=== PATIENT | male | born 1985 | race Caucasian/White ===

== ENCOUNTER 2024-07-24 02:28 | Emergency (ER) | payer SELFPAY ==
[2024-07-24 02:39] VITALS: BP 185/116
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
[2024-07-24] MEDS: ADACEL 0.5 ML IM (03:15)
[2024-07-24] MEDS: PERCOCET 5/325 2 TABLET PO (04:21)
== END 2024-07-24 04:51 | disposition home or self-care (01) ==
LOC: EMR 02:28
PROVIDERS: EMERGENCY PHYSICIAN Student in an Organized Health Care Education/Training Program
DX: T23.242A Burn of second degree of multiple left fingers (nail), including thumb, initial encounter (principal); X19.XXXA Contact with other heat and hot substances, initial encounter; Y93.G3 Activity, cooking and baking; Z23 Encounter for immunization
CPT/HCPCS: 90471; 99282; 90715